=== PATIENT | female | born 1990 | race Native Hawaiian/Other Pacific Islander ===

== ENCOUNTER 2018-07-03 09:27 | Emergency (ER) | payer OTHER ==
[~2018-07-03] VITALS: Ht 167.6 cm; Wt 90.3 kg
[~2018-07-03 09:27] MED LIST: ACETAMINOPHEN-1 EAC1 PO; AUGMENTIN 875875 MG PO; IBUPROFEN 800800 M1 PO; LIDOCAINE VISC100 M1 SWISH&SPIT; NOHOMEMEDICATIONS; NORCO 5-325 TA1 EACH PO; PENICILLIN V P500 MG PO
[2018-07-03 11:08] LABS: URINE BILIRUBIN NEGATIVE (Negative); URINE BLOOD NEGATIVE (Negative); URINE CLARITY CLEAR; URINE COLOR YELLOW; URINE GLUCOSE-RANDOM NEGATIVE (Negative); URINE KETONES NEGATIVE (Negative); URINE LEUKOCYTES-REFLEX NEGATIVE (Negative); URINE PROTEIN NEGATIVE (Negative); URINE UROBILINOGEN 0.2 E.U./dl (0.2-1.0)
[2018-07-03 11:09] LABS: URINE NITRITE-REFLEX POSITIVE (Negative)
[2018-07-03 11:15] LABS: AMP/METHAMP Negative (Negative); BARBITURATES Negative (Negative); BENZODIAZEPINES Negative (Negative); CASTS None Seen /LPF (None Seen); COCAINE Negative (Negative); METHADONE Negative (Negative); MUCUS 0-3 Light strn/LPF (None Seen); OPIATES Negative (Negative); PCP Negative (Negative); SQUAMOUS 4-10 Moderate /LPF (0-3); THC Negative (Negative); URINE RBC 0-2 Rare /HPF (0-2); URINE WBC-REFLEX 0-5 Rare /HPF (0-5)
[2018-07-03 11:16] LABS: ABSOLUTE EOSINOPHILS 0.1 thou/uL (0.0-0.7); ABSOLUTE MONOCYTES 0.6 thou/uL (0.0-1.2); ABSOLUTE NEUTROPHILS 5.7 thou/uL (1.6-8.1); BASOPHILS 0.4 %; EOSINOPHILS 0.8 %; HEMATOCRIT 41.7 % (37.0-47.0); LYMPHOCYTES 24.3 %; MCH 29.7 pg (26.0-34.0); MCHC 33.6 g/dL (28.0-37.0); MCV 88.3 fL (80.0-100.0); MONOCYTES 6.7 %; NUCLEATED RBCS 0 /100WBC; PLATELET COUNT* 398 thou/uL (150-400); POLYS 67.8 %; RBC 4.72 mil/uL (4.20-5.00); RDW-CV 12.3 % (10.5-14.5); WBC 8.4 thou/uL (4.0-11.0)
[2018-07-03 11:16] LABS: CRYSTALS None Seen /LPF (None Seen)
[2018-07-03 11:24] LABS: ANION GAP 8 mmol/L (7-16); BUN 14 mg/dL (7-18); CALCIUM 9.1 mg/dL (8.5-10.1); CHLORIDE 104 mmol/L (98-107); CO2 26 mmol/L (21-32); CREATININE 0.9 mg/dL (0.6-1.3); GLUCOSE 89 mg/dL (70-99); POTASSIUM 3.6 mmol/L (3.5-5.1); SODIUM 138 mmol/L (136-145)
[2018-07-03 11:31] LABS: ALBUMIN 4.2 g/dL (3.4-5.0); ALKALINE PHOSPHATASE 61 U/L (46-116); SGOT 17 U/L (15-37); SGPT 24 U/L (30-65); TOTAL BILIRUBIN 0.5 mg/dL (<0.1-1.0); TOTAL PROTEIN 8.4 g/dL (6.4-8.2); TROPONIN-I LEVEL <0.06 ng/mL (<0.06)
[2018-07-03] MEDS ORDERED: BACTRIM DS TAB1 EAC1 PO (11:46)
[2018-07-03 12:00] VITALS: BP 120/60
--- NOTE | 2018-07-04 12:39 | EKG ---
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
== END 2018-07-03 12:00 | disposition home or self-care (01) ==
LOC: M.ERS 09:27
PROVIDERS: Emergency Medicine Emergency Medical Services; Nurse Practitioner Family
DX: N39.0 Urinary tract infection, site not specified (principal); R55 Syncope and collapse

== ENCOUNTER 2019-06-06 13:31 | Emergency (ER) | payer OTHER ==
[~2019-06-06] VITALS: Ht 165.1 cm; Wt 94.8 kg
[~2019-06-06 13:31] MED LIST changes: +BACTRIM DS TAB1 EAC1 PO
[2019-06-06 14:07] LABS: INFLUENZA A ANTIGEN Negative (Negative)
[2019-06-06] MEDS ORDERED: TESSALON PERLE100 M1 PO (15:25)
[2019-06-06] MEDS ORDERED: PREDNISONE 10 M10 MG PO (15:25)
[2019-06-06] MEDS ORDERED: PROAIR HFA8.5 GM INH (15:25)
[2019-06-06 15:32] VITALS: BP 137/81
== END 2019-06-06 15:34 | disposition home or self-care (01) ==
LOC: M.ERS 13:31
PROVIDERS: Family Medicine
DX: J11.1 Influenza due to unidentified influenza virus with other respiratory manifestations (principal); I10 Essential (primary) hypertension